=== PATIENT | male | born 1985 | race Caucasian/White ===

== ENCOUNTER 2020-07-19 05:35 | Emergency (ER) | payer OTHER ==
[~2020-07-19] VITALS: Ht 177.8 cm; Wt 86.2 kg
[2020-07-19 06:30] VITALS: BP 100/71
[2020-07-19] MEDS ORDERED: SENNA-DOCUSATE1 EAC1 PO (06:54)
[2020-07-19] MEDS ORDERED: ZOFRAN ODT4 MG PO (06:54)
[2020-07-19] MEDS ORDERED: NORCO 5-325 TA1 EAC2 PO (06:54)
== END 2020-07-19 07:12 | disposition home or self-care (01) ==
LOC: ER 05:35
DX: S42.031A Displaced fracture of lateral end of right clavicle, initial encounter for closed fracture (principal); Z91.09 Other allergy status, other than to drugs and biological substances; W18.39XA Other fall on same level, initial encounter; Y93.89 Activity, other specified; Y92.89 Other specified places as the place of occurrence of the external cause; Y99.8 Other external cause status

== ENCOUNTER 2021-11-30 23:22 | Emergency (ER) | payer OTHER ==
[~2021-11-30] VITALS: Ht 177.8 cm; Wt 88.5 kg
[~2021-11-30 23:22] MED LIST: NORCO 5-325 TA1 EAC2 PO; SENNA-DOCUSATE1 EAC1 PO; ZOFRAN ODT4 MG PO
[2021-12-01 00:38] LABS: ABSOLUTE NEUTROPHILS 9.3 thou/uL (1.4-8.2); BASOPHILS 0.6 % (0.0-2.0); CALCIUM 8.9 mg/dL (8.5-10.1); CREATININE 1.1 mg/dL (0.7-1.3); EOSINOPHILS 2.9 % (0.0-3.0); HEMATOCRIT 46.3 % (42.0-52.0); HEMOGLOBIN 15.8 gm/dL (14.0-18.0); LYMPHOCYTES 14.4 % (24.0-44.0); MCH 32.9 pg (26.0-34.0); MCV 96.5 fL (80.0-100.0); PLATELET COUNT 375 thou/uL (150-400); POLYS 73.1 % (36.0-66.0); POTASSIUM 3.8 mmol/L (3.5-5.1); RDW 12.6 % (10.5-14.5); WBC 12.8 thou/uL (4.0-11.0)
[2021-12-01 00:44] LABS: TOTAL BILIRUBIN 0.6 mg/dL (0.2-1.0); TOTAL PROTEIN 7.3 g/dL (6.4-8.2)
[2021-12-01 02:05] LABS: URINE BILIRUBIN NEGATIVE (Negative); URINE BLOOD NEGATIVE (Negative); URINE CLARITY CLEAR; URINE COLOR YELLOW; URINE GLUCOSE-RANDOM* NEGATIVE (Negative); URINE KETONES NEGATIVE (Negative); URINE LEUKOCYTES-REFLEX NEGATIVE (Negative); URINE NITRITE-REFLEX NEGATIVE (Negative); URINE PROTEIN (DIPSTICK) NEGATIVE (Negative); URINE SPECIFIC GRAVITY 1.025 (1.005-1.035); URINE UROBILINOGEN 0.2 E.U./dl (0.2-1.0)
[2021-12-01] MEDS ORDERED: VALIUM2 MG PO (02:49)
[2021-12-01] MEDS ORDERED: IBUPROFEN 800800 MG PO (02:49)
[2021-12-01 03:01] VITALS: BP 120/80
== END 2021-12-01 03:04 | disposition home or self-care (01) ==
LOC: ER 23:22
PROVIDERS: Emergency Medicine
DX: M54.50 Low back pain, unspecified (principal); R10.30 Lower abdominal pain, unspecified; M54.10 Radiculopathy, site unspecified; Z79.899 Other long term (current) drug therapy; Z91.09 Other allergy status, other than to drugs and biological substances